=== PATIENT | female | born 1960 | race Caucasian/White ===

== ENCOUNTER 2021-07-01 15:57 | Inpatient (IN) | payer OTHER, SELFPAY ==
[2021-07-01] VITALS (20 sets, daily range): BP systolic 123–137; BP diastolic 70–93; PULSE 93–132; RESP 24–26; TEMP 36.6; O2SAT 90–97; BMI 35.4
[2021-07-01 16:44] LABS: COVID19 -Nasal RAPID Negative (Negative)
[2021-07-01] MEDS: ALBUTEROL/IPRATROPIUM 3 ML AMPUL INH ×2 (17:06→17:20)
--- NOTE | 2021-07-01 17:11 | DI.RAD.S_ITS ---
PROCEDURE: XR CHEST 1V INDICATIONS: Cough TECHNIQUE: One view of the chest was acquired. COMPARISON: None. FINDINGS: Surgical changes and devices: None. Lungs and pleura: Lungs are clear. No pleural effusions or pneumothorax. Mediastinum: Mediastinal contours appear normal. Heart size is normal. Bones and chest wall: No suspicious bony lesions. Overlying soft tissues appear unremarkable. IMPRESSION: No acute cardiopulmonary process demonstrated radiographically. Dictated by: Samir Hernandez M.D. on 07/01/2021 at 17:29 Approved by: Samir Hernandez M.D. on 07/01/2021 at 17:29
[2021-07-01] MEDS: ALBUTEROL 2.5 MG/3 ML NEB (ADULT) 5 MG INH (17:20)
[2021-07-01] MEDS: MAGNESIUM SULFATE 2 GM/50 ML PIGGYBACK IV (17:26)
[2021-07-01] MEDS: methylPREDNISolone 125 MG/2 ML VIAL IV (17:27)
[2021-07-01] MEDS: SODIUM CHLORIDE 0.9% 1,000 ML 1000 ML IV (17:27)
--- NOTE | 2021-07-01 17:54 | RT ---
pt ethel fried tx well, on room air with improvment noted. Post peak flow 240. Pt states she feels much better
[2021-07-01 18:05] LABS: Add Manual Diff / Slide Review NO; Basophils Absolute Auto 100 /uL (0-100); Basophils Percent Auto 0.7 % (0-2); Eosinophils Absolute Auto 900 /uL (0-450); Eosinophils Percent Auto 6.8 % (2-4); Hematocrit 46.4 % (36-46); Hemoglobin 15.6 g/dL (12.0-16.0); Lymphocytes Absolute Auto 2700 /uL (1100-4500); Lymphocytes Percent Auto 21.2 % (25-40); Mean Corpuscular HGB Conc 33.7 % (30-36); Mean Corpuscular Hemoglobin 28.8 PG (26-34); Mean Corpuscular Volume 85.2 fL (80-100); Monocytes Absolute Auto 1200 /uL (0-900); Monocytes Percent Auto 9.5 % (3-14); Neutrophils Absolute Auto 7700 /uL (1500-7000); Neutrophils Percent Auto 61.8 % (50-75); Platelet Count 392 X10^3/uL (150-400); Red Blood Cell Count 5.44 X10^6/uL (4.0-5.2); Red Cell Distribution Width 13.4 % (11.6-14.8); White Blood Cell Count 12.5 X10^3/uL (4.5-11.0)
[2021-07-01 18:19] LABS: Alanine Aminotransferase 27 IU/L (<35); Albumin 4.6 g/dL (3.5-5.0); Albumin Globulin Ratio 1.2 (1.0-2.8); Alkaline Phosphatase 60 U/L (38-126); Aspartate Aminotransferase 28 IU/L (14-36); BUN Creatinine Ratio 13.4 (6-22); Bilirubin Total 0.5 mg/dL (0.2-1.3); Blood Urea Nitrogen 19 mg/dL (7-17); Calcium 10.1 mg/dL (8.4-10.2); Carbon Dioxide 28 mmol/L (22-32); Chloride 105 mmol/L (98-107); Estimated Glomerular Filt Rate 37.6 mL/min (>60); Globulin 3.7 g/dL (1.7-4.1); Glucose 80 mg/dL (80-110); HEMOLYSIS < 15 (0-50); Potassium 3.4 mmol/L (3.4-5.1); Sodium 141 mmol/L (137-145); Total Protein 8.3 g/dL (6.3-8.2)
[2021-07-01 18:23] LABS: D Dimer 524 ng/mL (<230)
[2021-07-01 18:31] LABS: Troponin I < 0.012 ng/mL (0.01-0.034)
--- NOTE | 2021-07-01 18:53 | ED.ASTHMA ---
HPI - Asthma <Jaylyn Jones MD - Last Filed: 07/02/21 07:20> General Chief Complaint: Asthma Stated Complaint: bad asthma attack Time Seen by Provider: 07/01/21 17:09 Source: patient Mode of arrival: Ambulatory History of Present Illness HPI Narrative: 60-year-old woman with severe asthma 3 steroid tapers of the last number of months most recently discontinued about 6 days ago with worsening asthma symptoms over the last 24-48 hours. Recently seen by an telemetry rn and prescription Eren was written and she is waiting for insurance approval. Currently on high-dose Advair Diskus b.i.d., Singulair, albuterol inhaler and nebulizer and continues to have issues. She comes in today significantly short of breath able to speak in 1-2 word sentences oxygen saturations still maintained in the a 98% range but poor air movement and moderate tachycardia. She describes no fevers chills, vomiting, diarrhea, abdominal pain, headaches, lower extremity edema, chest pain or palpitations. Related Data Home Medications Medication Instructions Recorded Confirmed bupropion HCl 150 mg 24 hr tablet, 150 mg PO QDAY #0 07/12/16 07/02/21 extended release (Wellbutrin XL) fluticasone propionate 220 1 puff INH BID #0 07/12/16 07/02/21 mcg/actuation HFA aerosol inhaler (Flovent HFA) levothyroxine 150 mcg tablet 150 mcg PO QAM #0 07/12/16 07/02/21 triamterene 37.5 1 tab PO QDAY #0 07/12/16 07/02/21 mg-hydrochlorothiazide 25 mg tablet citalopram 20 mg tablet 20 mg PO DAILY 07/02/21 07/02/21 montelukast 10 mg tablet 10 mg PO DAILY 07/02/21 07/02/21 Previous Rx's Medication Instructions Recorded albuterol sulfate 1.25 mg/3 mL 1.25 mg (3 mL) INHALATION Q4-6H 07/01/21 solution for nebulization PRN #90 ml ipratropium 0.5 mg-albuterol 3 mg 3 ml INHALATION BID PRN #90 ml 07/01/21 (2.5 mg base)/3 mL nebulization soln prednisone 20 mg tablet 20 mg PO DAILY #14 tab 07/01/21 Allergies Allergy/AdvReac Type Severity Reaction Status Date / Time Sulfa (Sulfonamide Allergy Verified 07/01/21 16:03 Antibiotics) No Known Allergies Allergy Uncoded 10/12/17 12:13 Review of Systems <Jaylyn Jones MD - Last Filed: 07/02/21 07:20> Review of Systems Narrative: Remainder of complete review of systems is otherwise unremarkable except for that included in the HPI. Patient History <Jaylyn Jones MD - Last Filed: 07/02/21 07:20> Medical History Chronic depression Essential hypertension Hypothyroidism Family History Mother Alive and well Father Cancer Social History household members: family Smoking Status: Former smoker alcohol intake: current Smoking Status: Unknown if ever smoked alcohol intake frequency: holidays/special occasions only Substance Use Type: does not use Exam <Jaylyn Jones MD - Last Filed: 07/02/21 07:20> Narrative Exam Narrative: General: Ill-appearing with moderate respiratory distress able to speak in 3-4 word sentences are. Well-nourished well-developed HEENT: Moist mucous membranes, normal sclera with reactive pupils, Neck: No cervical adenopathy supple Respiratory: Lungs with poor overall movement scattered wheeze, no rhonchi Cardiac: Mild tachycardia Regular rate and rhythm no murmurs no bruits Abdomen: Soft, nontender, good bowel tones, no flank pain Skin: Warm and dry, no rashes Neurologic: Grossly neurologically intact with no obvious asymmetries or abnormalities Extremities: No trauma, well perfused, no lower extremity edema Psych: Cooperative, appropriate insight and affect Initial Vital Signs Initial Vital Signs: Vital Signs Temperature 97.8 F 07/01/21 16:03 Pulse Rate 107 H 07/01/21 16:03 Respiratory Rate 24 07/01/21 16:03 Blood Pressure 137/93 H 07/01/21 16:03 Pulse Oximetry 95 07/01/21 16:03 <Lalito Corral DO - Last Filed: 07/02/21 00:09> Initial Vital Signs Initial Vital Signs: Vital Signs Temperature 97.8 F 07/01/21 16:03 Pulse Rate 107 H 07/01/21 16:03 Respiratory Rate 24 07/01/21 16:03 Blood Pressure 137/93 H 07/01/21 16:03 Pulse Oximetry 95 07/01/21 16:03 Course <Jaylyn Jones MD - Last Filed: 07/02/21 07:20> Orders Ordered: Acetaminophen (Acetaminophen 325 Mg Tablet) 650 mg PO Q6HR PRN PRN Reason: Fever/Mild Pain (1-3) Albuterol (Albuterol 2.5 Mg/3 Ml Neb (Adult)) 2.5 mg INH [id number] PRN PRN Reason: Shortness Of Breath Albuterol/Ipratropium (Albuterol/Ipratropium 3 Ml Ampul) 3 ml INH [id number] LANDY Azithromycin (Azithromycin 250 Mg Tablet) 500 mg PO BEDTIME LANDY Budesonide (Budesonide 0.5 Mg/2 Ml Neb) 0.5 mg INH RTBID LANDY Dexamethasone (Dexamethasone 10 Mg/Ml Vial) 5 mg IV DAILY [facility] Stop: 07/06/21 08:59 Enoxaparin Sodium (Enoxaparin 40 Mg/0.4 Ml Syringe) 40 mg SUBCUT DAILY [facility] Ceftriaxone Sodium 1,000 mg/ (Sodium Chloride) 100 mls @ 200 mls/hr IV Q24H [facility] Ibuprofen (Ibuprofen 600 Mg Tablet) 600 mg PO Q6HR PRN PRN Reason: Fever/Mild Pain (1-3) Morphine Sulfate (Morphine 2 Mg/Ml Inj) 1 mg IV Q2HR PRN PRN Reason: Pain, Severe (7-10) Naloxone HCl (Naloxone 0.4 Mg/Ml Vial) 0.2 mg IV Q2MIN PRN PRN Reason: Opiate Reversal Triamterene/Hydrochlorothiazide (Triamterene/Hctz 37.5/25 Capsule) 1 cap PO DAILY [facility] Discontinued Medications Albuterol (Albuterol 2.5 Mg/3 Ml Neb (Adult)) 5 mg INH NOW ONE Stop: 07/01/21 17:11 Last Admin: 07/01/21 17:20 Dose: 5 mg Documented by: VIGNESH Albuterol (Albuterol 2.5 Mg/3 Ml Neb (Adult)) 20 mg INH NOW ONE Stop: 07/02/21 00:22 Last Admin: 07/02/21 00:31 Dose: 20 mg Documented by: KAITY Albuterol/Ipratropium (Albuterol/Ipratropium 3 Ml Ampul) 3 ml INH NOW ONE Stop: 07/01/21 17:04 Last Admin: 07/01/21 17:06 Dose: 3 ml Documented by: VIGNESH Albuterol/Ipratropium (Albuterol/Ipratropium 3 Ml Ampul) 3 ml INH NOW ONE Stop: 07/01/21 17:11 Last Admin: 07/01/21 17:20 Dose: 3 ml Documented by: VIGNESH Sodium Chloride (Normal Saline 0.9%) 1,000 mls @ 1,000 mls/hr IV BOLUS ONE Stop: 07/01/21 18:09 Last Infusion: 07/01/21 19:01 Dose: 0 mls/hr Documented by: Infusion: 07/01/21 18:13 Dose: 1,000 mls/hr Documented by: Infusion: 07/01/21 17:30 Dose: 100 mls/hr Documented by: Admin: 07/01/21 17:27 Dose: 1,000 mls/hr Documented by: THEE Magnesium Sulfate (Magnesium Sulfate) 2 gm in 50 mls @ 25 mls/hr IV NOW ONE Stop: 07/01/21 19:09 Last Infusion: 07/01/21 18:09 Dose: 0 mls/hr Documented by: THEE Cosigned by: ILIANA Admin: 07/01/21 17:26 Dose: 25 mls/hr Documented by: THEE Cosigned by: ILIANA Ceftriaxone Sodium 1,000 mg/ (Sodium Chloride) 100 mls @ 200 mls/hr IV NOW ONE Stop: 07/01/21 22:43 Last Infusion: 07/01/21 23:29 Dose: 0 mls/hr Documented by: Admin: 07/01/21 22:58 Dose: 200 mls/hr Documented by: BALA Azithromycin 500 mg/ Sodium (Chloride) 250 mls @ 250 mls/hr IV NOW ONE Stop: 07/02/21 00:44 Last Admin: 07/01/21 23:47 Dose: 250 mls/hr Documented by: BALA Ipratropium Hustle (Ipratropium 0.5 Mg/2.5 Ml Neb) 1.5 mg INH NOW ONE Stop: 07/02/21 00:22 Last Admin: 07/02/21 00:31 Dose: 1.5 mg Documented by: KAITY Methylprednisolone (Methylprednisolone 125 Mg/2 Ml Vial) 125 mg IV NOW ONE Stop: 07/01/21 17:11 Last Admin: 07/01/21 17:27 Dose: 125 mg Documented by: THEE Morphine Sulfate (Morphine 2 Mg/Ml Inj) 1 mg IV Q2HR LANDY Last Admin: 07/02/21 03:54 Dose: 1 mg Documented by: BECCA Vital Signs Vital signs: Vital Signs - 8 hr 07/01/21 23:30 07/01/21 23:47 07/02/21 00:00 Pulse Rate 96 H 95 H 97 H Blood Pressure 123/70 123/78 Pulse Oximetry 91 91 91 <Lalito Corral DO - Last Filed: 07/02/21 00:09> Course Course Narrative: 1929 -patient received in sign-out, I performed independent history and physical exam. CT angiogram shows no PE but she does have findings that could be consistent with an infectious process, antibiotics have been given. Despite extensive use of bronchodilators, steroids, and even Mg, her she still is working and with any ambulation become significantly dyspneic. She has already been through a course of oral steroids as an outpatient and was starting to improve some but this clinical picture would suggest the patient is appropriate for admission into the hospital for ongoing evaluation stabilization of her condition Orders Ordered: Acetaminophen (Acetaminophen 325 Mg Tablet) 650 mg PO Q6HR PRN PRN Reason: Fever/Mild Pain (1-3) Albuterol (Albuterol 2.5 Mg/3 Ml Neb (Adult)) 2.5 mg INH [id number] PRN PRN Reason: Shortness Of Breath Albuterol/Ipratropium (Albuterol/Ipratropium 3 Ml Ampul) 3 ml INH [id number] LANDY Azithromycin (Azithromycin 250 Mg Tablet) 500 mg PO BEDTIME LANDY Budesonide (Budesonide 0.5 Mg/2 Ml Neb) 0.5 mg INH RTBID LANDY Dexamethasone (Dexamethasone 10 Mg/Ml Vial) 5 mg IV DAILY [facility] Stop: 07/06/21 08:59 Enoxaparin Sodium (Enoxaparin 40 Mg/0.4 Ml Syringe) 40 mg SUBCUT DAILY [facility] Ceftriaxone Sodium 1,000 mg/ (Sodium Chloride) 100 mls @ 200 mls/hr IV Q24H [facility] Ibuprofen (Ibuprofen 600 Mg Tablet) 600 mg PO Q6HR PRN PRN Reason: Fever/Mild Pain (1-3) Morphine Sulfate (Morphine 2 Mg/Ml Inj) 1 mg IV Q2HR PRN PRN Reason: Pain, Severe (7-10) Naloxone HCl (Naloxone 0.4 Mg/Ml Vial) 0.2 mg IV Q2MIN PRN PRN Reason: Opiate Reversal Triamterene/Hydrochlorothiazide (Triamterene/Hctz 37.5/25 Capsule) 1 cap PO DAILY [facility] Discontinued Medications Albuterol (Albuterol 2.5 Mg/3 Ml Neb (Adult)) 5 mg INH NOW ONE Stop: 07/01/21 17:11 Last Admin: 07/01/21 17:20 Dose: 5 mg Documented by: VIGNESH Albuterol (Albuterol 2.5 Mg/3 Ml Neb (Adult)) 20 mg INH NOW ONE Stop: 07/02/21 00:22 Last Admin: 07/02/21 00:31 Dose: 20 mg Documented by: KAITY Albuterol/Ipratropium (Albuterol/Ipratropium 3 Ml Ampul) 3 ml INH NOW ONE Stop: 07/01/21 17:04 Last Admin: 07/01/21 17:06 Dose: 3 ml Documented by: VIGNESH Albuterol/Ipratropium (Albuterol/Ipratropium 3 Ml Ampul) 3 ml INH NOW ONE Stop: 07/01/21 17:11 Last Admin: 07/01/21 17:20 Dose: 3 ml Documented by: VIGNESH Sodium Chloride (Normal Saline 0.9%) 1,000 mls @ 1,000 mls/hr IV BOLUS ONE Stop: 07/01/21 18:09 Last Infusion: 07/01/21 19:01 Dose: 0 mls/hr Documented by: Infusion: 07/01/21 18:13 Dose: 1,000 mls/hr Documented by: Infusion: 07/01/21 17:30 Dose: 100 mls/hr Documented by: Admin: 07/01/21 17:27 Dose: 1,000 mls/hr Documented by: THEE Magnesium Sulfate (Magnesium Sulfate) 2 gm in 50 mls @ 25 mls/hr IV NOW ONE Stop: 07/01/21 19:09 Last Infusion: 07/01/21 18:09 Dose: 0 mls/hr Documented by: THEE Cosigned by: ILIANA Admin: 07/01/21 17:26 Dose: 25 mls/hr Documented by: THEE Cosigned by: ILIANA Ceftriaxone Sodium 1,000 mg/ (Sodium Chloride) 100 mls @ 200 mls/hr IV NOW ONE Stop: 07/01/21 22:43 Last Infusion: 07/01/21 23:29 Dose: 0 mls/hr Documented by: Admin: 07/01/21 22:58 Dose: 200 mls/hr Documented by: BALA Azithromycin 500 mg/ Sodium (Chloride) 250 mls @ 250 mls/hr IV NOW ONE Stop: 07/02/21 00:44 Last Admin: 07/01/21 23:47 Dose: 250 mls/hr Documented by: BALA Ipratropium Hustle (Ipratropium 0.5 Mg/2.5 Ml Neb) 1.5 mg INH NOW ONE Stop: 07/02/21 00:22 Last Admin: 07/02/21 00:31 Dose: 1.5 mg Documented by: KAITY Methylprednisolone (Methylprednisolone 125 Mg/2 Ml Vial) 125 mg IV NOW ONE Stop: 07/01/21 17:11 Last Admin: 07/01/21 17:27 Dose: 125 mg Documented by: THEE Morphine Sulfate (Morphine 2 Mg/Ml Inj) 1 mg IV Q2HR LANDY Last Admin: 07/02/21 03:54 Dose: 1 mg Documented by: BECCA Vital Signs Vital signs: Vital Signs - 8 hr 07/01/21 23:30 07/01/21 23:47 07/02/21 00:00 Pulse Rate 96 H 95 H 97 H Blood Pressure 123/70 123/78 Pulse Oximetry 91 91 91 MDM - Asthma <Jaylyn Jones MD - Last Filed: 07/02/21 07:20> Lab Data Result diagrams: 07/02/21 05:53 07/02/21 05:53 Labs: Lab Results 07/01/21 07/01/21 07/01/21 Range/Units 16:09 17:30 17:30 WBC 12.5 H (4.5-11.0) X10^3/uL RBC 5.44 H (4.0-5.2) X10^6/uL Hgb 15.6 (12.0-16.0) g/dL Hct 46.4 H (36-46) % MCV 85.2 (80-100) fL MCH 28.8 (26-34) PG MCHC 33.7 (30-36) % RDW 13.4 (11.6-14.8) % Plt Count 392 (150-400) X10^3/uL Neut % (Auto) 61.8 (50-75) % Lymph % (Auto) 21.2 L (25-40) % [place] % (Auto) 9.5 (3-14) % Eos % (Auto) 6.8 H (2-4) % Baso % (Auto) 0.7 (0-2) % Neut # (Auto) 7700 H (7301-6008) /uL Lymph # (Auto) 2700 (6497-2674) /uL [place] # (Auto) 1200 H (0-900) /uL Eos # (Auto) 900 H (0-450) /uL Baso # (Auto) 100 (0-100) /uL D-Dimer 524 H (<230) ng/mL ABG pH (7.35-7.45) ABG pCO2 (35-45) mmHg ABG pO2 (80-100) mmHg ABG HCO3 (22-26) mmol/L ABG Total CO2 (21-31) mmol/L ABG O2 Saturation (95-100) % ABG Base Excess (-2-2) mmol/L FiO2 Sodium (137-145) mmol/L Potassium (3.4-5.1) mmol/L Chloride (98-107) mmol/L Carbon Dioxide (22-32) mmol/L BUN (7-17) mg/dL Creatinine (0.52-1.04) mg/dL Estimated GFR (>60) mL/min BUN/Creatinine Ratio (6-22) Glucose (80-110) mg/dL Calcium (8.4-10.2) mg/dL Total Bilirubin (0.2-1.3) mg/dL AST (14-36) IU/L ALT (<35) IU/L Alkaline Phosphatase (38-126) U/L Troponin I (0.01-0.034) ng/mL Total Protein (6.3-8.2) g/dL Albumin (3.5-5.0) g/dL Globulin (1.7-4.1) g/dL Albumin/Globulin Ratio (1.0-2.8) Procalcitonin (<0.5) ng/mL SARS-CoV-2 (PCR) Negative (Negative) 07/01/21 07/01/21 07/02/21 Range/Units 17:30 17:30 00:00 WBC (4.5-11.0) X10^3/uL RBC (4.0-5.2) X10^6/uL Hgb (12.0-16.0) g/dL Hct (36-46) % MCV (80-100) fL MCH (26-34) PG MCHC (30-36) % RDW (11.6-14.8) % Plt Count (150-400) X10^3/uL Neut % (Auto) (50-75) % Lymph % (Auto) (25-40) % [place] % (Auto) (3-14) % Eos % (Auto) (2-4) % Baso % (Auto) (0-2) % Neut # (Auto) (5209-1548) /uL Lymph # (Auto) (6437-6178) /uL [place] # (Auto) (0-900) /uL Eos # (Auto) (0-450) /uL Baso # (Auto) (0-100) /uL D-Dimer (<230) ng/mL ABG pH 7.40 (7.35-7.45) ABG pCO2 30.6 L (35-45) mmHg ABG pO2 66 L (80-100) mmHg ABG HCO3 19 L (22-26) mmol/L ABG Total CO2 20 L (21-31) mmol/L ABG O2 Saturation 93 L (95-100) % ABG Base Excess -6.0 L (-2-2) mmol/L FiO2 21 Sodium 141 (137-145) mmol/L Potassium 3.4 (3.4-5.1) mmol/L Chloride 105 (98-107) mmol/L Carbon Dioxide 28 (22-32) mmol/L BUN 19 H (7-17) mg/dL Creatinine 1.42 H (0.52-1.04) mg/dL Estimated GFR 37.6 L (>60) mL/min BUN/Creatinine Ratio 13.4 (6-22) Glucose 80 (80-110) mg/dL Calcium 10.1 (8.4-10.2) mg/dL Total Bilirubin 0.5 (0.2-1.3) mg/dL AST 28 (14-36) IU/L ALT 27 (<35) IU/L Alkaline Phosphatase 60 (38-126) U/L Troponin I < 0.012 (0.01-0.034) ng/mL Total Protein 8.3 H (6.3-8.2) g/dL Albumin 4.6 (3.5-5.0) g/dL Globulin 3.7 (1.7-4.1) g/dL Albumin/Globulin Ratio 1.2 (1.0-2.8) Procalcitonin 0.08 (<0.5) ng/mL SARS-CoV-2 (PCR) (Negative) Imaging Data Chest x-ray: Radiologist's Impression: FINDINGS:? ? Surgical changes and devices:? None.? ? Lungs and pleura:? Lungs are clear.? No pleural effusions or pneumothorax.? ? Mediastinum:? Mediastinal contours appear normal.? Heart size is normal.? ? Bones and chest wall:? No suspicious bony lesions.? Overlying soft tissues appear unremarkable.? ? IMPRESSION:? No acute cardiopulmonary process demonstrated radiographically. ? ? Dictated by: Samir Hernandez M.D. on 07/01/2021 at 17:29 ? ? CT scan - chest: Radiologist's Impression: FINDINGS:? Image quality:? Excellent.? ? Pulmonary arteries:? Pulmonary arteries are normal in size, and demonstrate no intraluminal filling defects to suggest central pulmonary embolism.? ? Lungs and pleura:? Scattered small centrilobular nodules in both lungs, nonspecific but likely infectious/inflammatory.? No focal consolidation.? No significant pleural abnormality.? Central airways clear. ? Mediastinum:? No mediastinal or hilar lymphadenopathy.? Small hiatal hernia.? Normal heart size.? Thoracic aorta unremarkable. ? Bones and chest wall:? No threshold enlarged axillary lymph node.? No acute or suspicious osseous lesion. ? Abdomen:? No acute finding in the included upper abdomen. ? IMPRESSION:? No pulmonary embolism.? Scattered small bilateral centrilobular pulmonary nodules and ground-glass opacities, likely infectious/inflammatory.? Follow-up to resolution recommended. ? ? Dictated by: Samir Hernandez M.D. on 07/01/2021 at 20:32? ?? MDM Narrative Medical decision making narrative: 60-year-old woman with severe asthma, worse over the last month with multiple courses of prednisone comes in today with severe exacerbation. She does improve significantly with fluids, IV magnesium, ipratropium followed by albuterol nebulizers and IV steroids. D-dimer is elevated so will do a PE study to confirm that she does not have pulmonary embolism to complicate the overall picture explain why she has had such severe asthma symptoms over the last couple of weeks. At this time is not appear to be any evidence of acute infection or pneumonia. Once her lungs have the open up somewhat becomes obvious how severe her wheezing is. At this point she is able to speak in almost full sentences and no longer using any accessory muscles. CTA is pending. Care is turned over to Dr Corral at change of shift. CTA was unremarkable. On further clinical evaluation wheezing did not significantly improve with significant work of breathing tachypnea. Decision was made to add mid the patient for acute asthma exacerbation and continued aggressive treatment. She is given a dose of antibiotics for possible atypical pneumonia and care is accepted by the hospitalist service. She is safely transfer to the floor. <Lalito Corral, - Last Filed: 07/02/21 00:09> Lab Data Labs: Lab Results 07/01/21 07/01/21 07/01/21 Range/Units 16:09 17:30 17:30 WBC 12.5 H (4.5-11.0) X10^3/uL RBC 5.44 H (4.0-5.2) X10^6/uL Hgb 15.6 (12.0-16.0) g/dL Hct 46.4 H (36-46) % MCV 85.2 (80-100) fL MCH 28.8 (26-34) PG MCHC 33.7 (30-36) % RDW 13.4 (11.6-14.8) % Plt Count 392 (150-400) X10^3/uL Neut % (Auto) 61.8 (50-75) % Lymph % (Auto) 21.2 L (25-40) % [place] % (Auto) 9.5 (3-14) % Eos % (Auto) 6.8 H (2-4) % Baso % (Auto) 0.7 (0-2) % Neut # (Auto) 7700 H (9760-8098) /uL Lymph # (Auto) 2700 (1359-0741) /uL [place] # (Auto) 1200 H (0-900) /uL Eos # (Auto) 900 H (0-450) /uL Baso # (Auto) 100 (0-100) /uL D-Dimer 524 H (<230) ng/mL ABG pH (7.35-7.45) ABG pCO2 (35-45) mmHg ABG pO2 (80-100) mmHg ABG HCO3 (22-26) mmol/L ABG Total CO2 (21-31) mmol/L ABG O2 Saturation (95-100) % ABG Base Excess (-2-2) mmol/L FiO2 Sodium (137-145) mmol/L Potassium (3.4-5.1) mmol/L Chloride (98-107) mmol/L Carbon Dioxide (22-32) mmol/L BUN (7-17) mg/dL Creatinine (0.52-1.04) mg/dL Estimated GFR (>60) mL/min BUN/Creatinine Ratio (6-22) Glucose (80-110) mg/dL Calcium (8.4-10.2) mg/dL Total Bilirubin (0.2-1.3) mg/dL AST (14-36) IU/L ALT (<35) IU/L Alkaline Phosphatase (38-126) U/L Troponin I (0.01-0.034) ng/mL Total Protein (6.3-8.2) g/dL Albumin (3.5-5.0) g/dL Globulin (1.7-4.1) g/dL Albumin/Globulin Ratio (1.0-2.8) Procalcitonin (<0.5) ng/mL SARS-CoV-2 (PCR) Negative (Negative) 07/01/21 07/01/2121 Range/Units 17:30 17:30 00:00 WBC (4.5-11.0) X10^3/uL RBC (4.0-5.2) X10^6/uL Hgb (12.0-16.0) g/dL Hct (36-46) % MCV (80-100) fL MCH (26-34) PG MCHC (30-36) % RDW (11.6-14.8) % Plt Count (150-400) X10^3/uL Neut % (Auto) (50-75) % Lymph % (Auto) (25-40) % [place] % (Auto) (3-14) % Eos % (Auto) (2-4) % Baso % (Auto) (0-2) % Neut # (Auto) (2367-3342) /uL Lymph # (Auto) (0426-7428) /uL [place] # (Auto) (0-900) /uL Eos # (Auto) (0-450) /uL Baso # (Auto) (0-100) /uL D-Dimer (<230) ng/mL ABG pH 7.40 (7.35-7.45) ABG pCO2 30.6 L (35-45) mmHg ABG pO2 66 L (80-100) mmHg ABG HCO3 19 L (22-26) mmol/L ABG Total CO2 20 L (21-31) mmol/L ABG O2 Saturation 93 L (95-100) % ABG Base Excess -6.0 L (-2-2) mmol/L FiO2 21 Sodium 141 (137-145) mmol/L Potassium 3.4 (3.4-5.1) mmol/L Chloride 105 (98-107) mmol/L Carbon Dioxide 28 (22-32) mmol/L BUN 19 H (7-17) mg/dL Creatinine 1.42 H (0.52-1.04) mg/dL Estimated GFR 37.6 L (>60) mL/min BUN/Creatinine Ratio 13.4 (6-22) Glucose 80 (80-110) mg/dL Calcium 10.1 (8.4-10.2) mg/dL Total Bilirubin 0.5 (0.2-1.3) mg/dL AST 28 (14-36) IU/L ALT 27 (<35) IU/L Alkaline Phosphatase 60 (38-126) U/L Troponin I < 0.012 (0.01-0.034) ng/mL Total Protein 8.3 H (6.3-8.2) g/dL Albumin 4.6 (3.5-5.0) g/dL Globulin 3.7 (1.7-4.1) g/dL Albumin/Globulin Ratio 1.2 (1.0-2.8) Procalcitonin 0.08 (<0.5) ng/mL SARS-CoV-2 (PCR) (Negative) Discharge Plan Departure Patient Disposition: Admitted as Observation Clinical Impression: Asthma with acute exacerbation, Atypical pneumonia Admit Date/Time: 07/02/21 00:08 Admit Provider: Yas Byrnes
--- NOTE | 2021-07-01 19:53 | PC.NURSE ---
Patient got up to restroom, with short walk to restroom patient began coughing extensively having a hard time catching her breath. Room air sat 93, heart rate 104. After a few minutes of rest coughing slowed and patient was able to catch her breath.
--- NOTE | 2021-07-01 20:04 | DI.CT.S_ITS ---
PROCEDURE: CT ANGIO CHEST PE PROTOCOL INDICATIONS: SOB, elevated Dimer TECHNIQUE: After the administration of intravenous contrast, 2 mm thick sections acquired from the pulmonary apices to the posterior costophrenic angles. 3-dimensional maximum intensity projection (MIP) coronal and sagittal reformats were then acquired through the thorax. For radiation dose reduction, the following was used: automated exposure control, adjustment of mA and/or kV according to patient size. COMPARISON: None. FINDINGS: Image quality: Excellent. Pulmonary arteries: Pulmonary arteries are normal in size, and demonstrate no intraluminal filling defects to suggest central pulmonary embolism. Lungs and pleura: Scattered small centrilobular nodules in both lungs, nonspecific but likely infectious/inflammatory. No focal consolidation. No significant pleural abnormality. Central airways clear. Mediastinum: No mediastinal or hilar lymphadenopathy. Small hiatal hernia. Normal heart size. Thoracic aorta unremarkable. Bones and chest wall: No threshold enlarged axillary lymph node. No acute or suspicious osseous lesion. Abdomen: No acute finding in the included upper abdomen. IMPRESSION: No pulmonary embolism. Scattered small bilateral centrilobular pulmonary nodules and ground-glass opacities, likely infectious/inflammatory. Follow-up to resolution recommended. Dictated by: Samir Hernandez M.D. on 07/01/2021 at 20:32 Approved by: Samir Hernandez M.D. on 07/01/2021 at 20:37
[2021-07-01] MEDS: cefTRIAXone 1,000 MG in SODIUM CHLORIDE 0.9% 100 ML 200 ML IV (22:58)
[2021-07-01] MEDS: AZITHROMYCIN 500 MG in SODIUM CHLORIDE 0.9% 250 ML IV (23:47)
[2021-07-02] VITALS (16 sets, daily range): BP systolic 114–143; BP diastolic 64–82; PULSE 84–128; RESP 17–26; TEMP 36.3–37.6; O2SAT 91–97; BMI 35.5
[2021-07-02] MEDS: ALBUTEROL 2.5 MG/3 ML NEB (ADULT) 20 MG INH (00:31)
[2021-07-02] MEDS: IPRATROPIUM 0.5 MG/2.5 ML NEB 1.5 MG INH (00:31)
--- NOTE | 2021-07-02 00:39 | P.HP_ITS ---
History of Present Illness History of Present Illness Date Patient Seen: 07/02/21 Time Patient Seen: 00:10 Chief complaint: Asthma exacerbation, atypical pneumonia Narrative: Annabella Chavis is 60-year-old woman with eosinophilic phenotype severe asthma who underwent 3 steroid tapers of the last number of months most recently discontinued about 6 days ago with worsening asthma symptoms over the last 24-48 hours.? She was recently seen by an aerospace medicine physician at [facility] in [place] and and prescribed injectable Fasenra.? She received in in the mail and needed to have a provider administer her the first dose and has an appointment on July 06 for thisl She is currently using on high-dose Advair Diskus b.i.d 9500/50), monteleukast, albuterol inhaler and nebulizer and continues to short of breath.? She comes in today significantly short of breath, only able to speak in 1-2 word sentences oxygen saturations still maintained in the a 98% range but poor air movement and moderate tachycardia.? She describes no fevers chills, vomiting, diarrhea, abdominal pain, headaches, lower extremity edema, chest pain or palpitations. She does endorse a mildly productive cough with phlegm ranging from clear to greenish in color. In the ED, due to her hypoxia and an elevated D-dimer, she underwent CT angio of the chest and ruled out for a PE concluding: No pulmonary embolism.? Scattered small bilateral centrilobular pulmonary nodules and ground-glass opacities, likely infectious/inflammatory.? Follow-up to resolution recommended. She was adminstered a one-time dose of IV solumedrol 125 mg and multiple nebulizers. She was also administered first doses of IV ceftriaxone and azithromycin. Her temp is 97.8?, blood pressure 120/78, heart rate 101, respiratory rate 26, oxygen saturation 96% (I observed closer to 90-91% on room air while in the room), she weighs 90.7 kg with a BMI of 35.4. She does have a mildly elevated white count at 12.5, she has a mild left shift of 7700, D-dimer was 524, however she is just under the age adjusted normal, she does have a creatinine bump of 1.42 with a EGFR of 37.6, procalcitonin was ordered and is pending and COVID-19 PCR is negative. Patient History Medical History Chronic depression Essential hypertension Hypothyroidism Family & Social History Family History Mother Alive and well Father Cancer Safety & Behavioral: Feels Safe in Current Yes Environment Been Physically Hurt or No Threatened By a Person Tobacco & Substance use: Smoking Status Unknown if ever smoked alcohol intake frequency holiday/special occasion Substance Use Type does not use Meds Home Medications and Allergies Home Medications Medication Instructions Recorded Confirmed Type azithromycin 250 mg tablet 250 mg PO SEE INSTRUCTIONS #6 tab 07/12/16 Rx (Zithromax) beclomethasone dipropionate 80 1 puff INH BID #0 07/12/16 History mcg/actuation aerosol inhaler (Qvar) benzonatate 100 mg capsule 100 mg PO BIDP PRN #30 cap 07/12/16 Rx (Tessalon Perles) bupropion HCl 150 mg 24 hr tablet, 150 mg PO QDAY #0 07/12/16 History extended release (Wellbutrin XL) fluticasone propionate 220 1 puff INH BID #0 07/12/16 History mcg/actuation HFA aerosol inhaler (Flovent HFA) levothyroxine 150 mcg tablet 150 mcg PO QAM #0 07/12/16 History prednisone 20 mg tablet 20 mg PO SEE INSTRUCTIONS #10 tab 07/12/16 Rx sertraline 100 mg tablet 100 mg PO QDAY #0 07/12/16 History triamterene 37.5 1 tab PO QDAY #0 07/12/16 History mg-hydrochlorothiazide 25 mg tablet albuterol sulfate 1.25 mg/3 mL 1.25 mg (3 mL) INHALATION Q4-6H 07/01/21 Rx solution for nebulization PRN #90 ml ipratropium 0.5 mg-albuterol 3 mg 3 ml INHALATION BID PRN #90 ml 07/01/21 Rx (2.5 mg base)/3 mL nebulization soln prednisone 20 mg tablet 20 mg PO DAILY #14 tab 07/01/21 Rx Allergies Allergy/AdvReac Type Severity Reaction Status Date / Time Sulfa (Sulfonamide Allergy Verified 07/01/21 16:03 Antibiotics) No Known Allergies Allergy Uncoded 04/11/18 12:13 Review of Systems Review of Systems ROS: Yes All systems reviewed with the patient and are negative except as otherwise documented Exam Vital Signs (past 8 hours): - 07/01/21 17:00 07/01/21 17:06 07/01/21 17:10 Pulse Rate 132 H 114 H 110 H Respiratory Rate 24 24 Blood Pressure Pulse Oximetry 93 94 96 07/01/21 17:30 07/01/21 17:47 07/01/21 18:00 Pulse Rate 111 H 104 H Respiratory Rate Blood Pressure Pulse Oximetry 97 92 92 07/01/21 18:30 07/01/21 19:00 07/01/21 19:30 Pulse Rate 96 H 93 H 97 H Respiratory Rate Blood Pressure Pulse Oximetry 92 94 93 07/01/21 20:00 07/01/21 20:30 07/01/21 21:00 Pulse Rate 97 H 98 H 98 H Respiratory Rate Blood Pressure Pulse Oximetry 92 93 91 07/01/21 21:21 07/01/21 21:30 07/01/21 22:00 Pulse Rate 111 H 102 H 100 H Respiratory Rate 26 H Blood Pressure Pulse Oximetry 94 91 90 L 07/01/21 22:30 07/01/21 23:00 07/01/21 23:30 Pulse Rate 100 H 101 H 96 H Respiratory Rate Blood Pressure Pulse Oximetry 91 07/01/21 23:47 07/02/21 00:00 07/02/21 00:30 Pulse Rate 95 H 97 H 101 H Respiratory Rate Blood Pressure 123/70 123/78 120/78 Pulse Oximetry 91 91 96 Oxygen Delivery Method Room Air Narrative Exam Narrative: Gen: Alert, oriented, well-developed 60 y.o. female, labored breathing HEENT: normocephalic, atraumatic, conjunctiva clear, sclera non-icteric, oral mucosa pink and moist Neck: supple, full ROM, no JVD, trachea is midline Resp: Lungs tight w/an O2 sat of 91%, continuous coughing CV: RRR, no murmur or rubs Abd: soft, non-tender, normoactive BTs Skin: no lesions or rashes, dry and intact Neuro: Alert and oriented X 4 w/no focal deficits. Speech clear and coherent. Extremities: moves all 4 extremities, is ambulatory, negative Anali?s sign Psyche: normal mood and affect. Objective Labs Result Diagrams: 07/01/21 17:30 07/01/21 17:30 Labs: Laboratory Results - last 24 hr 07/01/21 07/01/21 07/01/21 16:09 17:30 17:30 WBC 12.5 H RBC 5.44 H Hgb 15.6 Hct 46.4 H MCV 85.2 MCH 28.8 MCHC 33.7 RDW 13.4 Plt Count 392 Neut % (Auto) 61.8 Lymph % (Auto) 21.[address] [place] % (Auto) 9.5 Eos % (Auto) 6.8 H Baso % (Auto) 0.7 Neut # (Auto) 7700 H Lymph # (Auto) 2700 [place] # (Auto) 1200 H Eos # (Auto) 900 H Baso # (Auto) 100 D-Dimer 524 H Sodium Potassium Chloride Carbon Dioxide BUN Creatinine Estimated GFR BUN/Creatinine Ratio Glucose Calcium Total Bilirubin AST ALT Alkaline Phosphatase Troponin I Total Protein Albumin Globulin Albumin/Globulin Ratio SARS-CoV-2 (PCR) Negative 07/01/21 17:30 WBC RBC Hgb Hct MCV MCH MCHC RDW Plt Count Neut % (Auto) Lymph % (Auto) [place] % (Auto) Eos % (Auto) Baso % (Auto) Neut # (Auto) Lymph # (Auto) [place] # (Auto) Eos # (Auto) Baso # (Auto) D-Dimer Sodium 141 Potassium 3.4 Chloride 105 Carbon Dioxide 28 BUN 19 H Creatinine 1.42 H Estimated GFR 37.6 L BUN/Creatinine Ratio 13.4 Glucose 80 Calcium 10.1 Total Bilirubin 0.5 AST 28 ALT 27 Alkaline Phosphatase 60 Troponin I < 0.012 Total Protein 8.3 H Albumin 4.6 Globulin 3.7 Albumin/Globulin Ratio 1.2 SARS-CoV-2 (PCR) Assessment & Plan Assessment & Plan narrative: Annabella Chaivs is admitted for managment and treatment of an asthma exacerbation with an atypical pneumonia. 1. Acute respiratory failure secondary to an asthma exacerbation, present on admission * Patient has eosinophillic phenotype * She has received albuterol/ipatroprium nebulizers and currently is receiving a continuous nebulizer prior to arrival to the medical floor * Start pulmicort nebs bid * Dexamethasone 5 mg IV daily X 4 days, then oral tapor * Continue home dose of monteleukast 10 mg po at bedtime * Son plans to bring her Fosendra injectable, and patient may receive first dose here. 2. Atypical pneumonia, acute and present on admission * Procalcitonin is negative * Continue IV Ceftriaxone and oral azithromax * If no improvement over several days retest for COVID-19 3. Essential hypertension, chronic * Continue home dose of triamterine/HCTZ 37.5/25 4. Hypothyroidism, chronic * Continue home dose of levothyroxine 150 mcg daily 5. Depression, chronic * Continue home dose of bupropion 150 mg po daily VTE Prophylaxis: Wells risk score 1.5 Enoxaparin 40 mg subQ once daily Bilateral SCDs Patient is admitted to the inpatient service due to the severity of disease, risks of further disease progression and this stay is expected to exceed 2 mid nights. FEN: IV fluids: saline lock, diet: heart healthy, labs: CBC, C/BMP, liver enzymes, Mag, PT/INR Consultants None Dispo: probable discharge to home Code status: Full Code as discussed with the patient who identifies her son, Hermelindo as her surrogate and POA. [X] I have utilized all available immediate resources to obtain, update, or review of the patient's current medications COVID-19 COVID-19 status: Negative Result date/Date tested (Pos, Neg/Pending): 07/02/21 Time Spent With Patient Critical Care time: I spent a total of [] minutes of critical care time on this patient's care today; this time is exclusive of procedural time. Scores Wells' Criteria for PE Clinical signs and symptoms of DVT: No PE is #1 Dx or equally likely: No Heart rate > 100: Yes Immobilization at least 3 days or surg in previous 4 weeks: No History of PE or DVT: No Hemoptysis: No Malignancy w/Treatment within 6 months or palliative: No Wells' PE Score total: 1.5 Quality VTE Deep Vein Thrombosis/Pulmonary Embolism Present on Admission: No MIPS - Admit I confirm the patient?s Advance Care Plan is present, Code status is documented, Surrogate decision maker is in patient?s record [If Yes, STOP here]: Yes MIPS - DC The patient has current or prior documentation of left ventricular ejection fraction (LVEF) less than 40%, or moderate or severely depressed left ventricular systolic function.: No
[2021-07-02 01:11] LABS: Procalcitonin 0.08 ng/mL (<0.5)
[2021-07-02 01:27] LABS: HCO3 ABG 19 mmol/L (22-26); Oxygen Saturation ABG 93 % (95-100); PCO2 ABG 30.6 mmHg (35-45); PO2 ABG 66 mmHg (80-100); TCO2 ABG 20 mmol/L (21-31)
[2021-07-02 01:28] LABS: Fractionated Inspired Oxygen 21
--- NOTE | 2021-07-02 03:32 | PC.NURSE ---
Patient arrived at 0227 via stretcher from ED. Patient is A/Ox4 on RA and was coughing when up to the bathroom. Patient was started on Neb treatment at time of arrival and admission was completed. Patients home medications were placed into the nurse catering server at patients request. Pt oriented to room, call light, and fall precautions. Call light and belongings within reach and bed in the lowest and locked position. Son in room with patient at this time.
[2021-07-02] MEDS: MORPHINE 2 MG/ML INJ 1 MG IV ×2 (03:54→20:36)
[2021-07-02 06:31] LABS: Add Manual Diff / Slide Review NO; Basophils Absolute Auto 0 /uL (0-100); Basophils Percent Auto 0.1 % (0-2); Eosinophils Absolute Auto 0 /uL (0-450); Hemoglobin 14.2 g/dL (12.0-16.0); Lymphocytes Absolute Auto 400 /uL (1100-4500); Lymphocytes Percent Auto 4.9 % (25-40); Mean Corpuscular HGB Conc 33.7 % (30-36); Monocytes Absolute Auto 100 /uL (0-900); Monocytes Percent Auto 0.6 % (3-14); Neutrophils Absolute Auto 8000 /uL (1500-7000); Neutrophils Percent Auto 94.4 % (50-75); Platelet Count 366 X10^3/uL (150-400); Red Blood Cell Count 4.88 X10^6/uL (4.0-5.2); Red Cell Distribution Width 13.2 % (11.6-14.8); White Blood Cell Count 8.5 X10^3/uL (4.5-11.0)
[2021-07-02 06:38] LABS: Blood Urea Nitrogen 17 mg/dL (7-17); Calcium 9.3 mg/dL (8.4-10.2); Carbon Dioxide 19 mmol/L (22-32); Chloride 105 mmol/L (98-107); Estimated Glomerular Filt Rate 45.2 mL/min (>60); Glucose 173 mg/dL (80-110); HEMOLYSIS < 15 (0-50); Magnesium 2.3 mg/dL (1.6-2.3); Potassium 3.4 mmol/L (3.4-5.1); Sodium 138 mmol/L (137-145)
[2021-07-02 06:56] LABS: Albumin 4.4 g/dL (3.5-5.0); Albumin Globulin Ratio 1.4 (1.0-2.8); Alkaline Phosphatase 56 U/L (38-126); Aspartate Aminotransferase 34 IU/L (14-36); Bilirubin Total 0.4 mg/dL (0.2-1.3); Bilirubin Unconjugated 0.4 mg/dL (0.0-1.1); Globulin 3.1 g/dL (1.7-4.1); HEMOLYSIS < 15 (0-50); Total Protein 7.5 g/dL (6.3-8.2)
[2021-07-02 07:04] LABS: Alanine Aminotransferase 31 IU/L (<35)
[2021-07-02] MEDS: DEXAMETHASONE 10 MG/ML VIAL 5 MG IV (09:01)
[2021-07-02] MEDS: TRIAMTERENE/HCTZ 37.5/25 CAPSULE 1 CAP PO (09:01)
[2021-07-02] MEDS: ENOXAPARIN 40 MG/0.4 ML SYRINGE SUBCUT (09:02)
[2021-07-02] MEDS: ALBUTEROL/IPRATROPIUM 3 ML AMPUL INH ×3 (09:19→21:01)
[2021-07-02] MEDS: BUDESONIDE 0.5 MG/2 ML NEB INH ×2 (09:20→21:01)
[2021-07-02] MEDS: POTASSIUM CHLORIDE 20 MEQ TAB PO (10:38)
[2021-07-02] MEDS: BENZOCAINE/MENTHOL 1 LOZ PKT 1 EACH PO ×3 (10:38→20:36)
--- NOTE | 2021-07-02 11:02 | PC.NURSE ---
Addendum entered by Marina Rodriguez R.N. 07/02/21 18:15: Patient given ibuprofen,guaifenesin, and iv steroid all of which she tolerated well. States that she has some back pain with her coughing. Addendum entered by Marina Rodriguez R.N. 07/02/21 17:26: Patient up independently to the bathroom and was sitting on the couch in her room. Explained to patient that we would like to have her call if she needs to get up. O2 sats have been 89-93. She is on 2l of oxygen and does have an intermittant cough. Throat lozenges are helpful to patient and she will be getting some iv steroid soon. Addendum entered by Marina Rodriguez R.N. 07/02/21 14:16: Patient is resting on her r.side and is comfortable. She is not in pain or having issues coughing. Patient on 2l of oxygen at this time. 02 89-94%. Addendum entered by Marina Rodriguez R.N. 07/02/21 12:59: Respiratory Panel done and results back. Patient is resting and comfortable. Original Note: Assess- Patient is alert and oriented x3. She gets easily sob when up to the bathroom, with talking, and laughing. Decadron 5mg given to patient this morning, she will start methylprednisolone tonight. Breath sounds upon auscultation with inspiratory and expiratory wheezes, with stridor at the end of her cough. Her O2 sats are 93%. Given a throat lonzenge for comfort and helpful.
[2021-07-02 12:20] LABS: Adenovirus Not Detected (Not Detect); B. parapertussis Not Detected (Not Detecte); Bordetella pertussis Not Detected (Not Detecte); Chlamydophila pneumoniae Not Detected (Not Detect); Coronavirus 229E Not Detected (Not Detect); Coronavirus HKU1 Not Detected (Not Detect); Coronavirus NL 63 Not Detected (Not Detect); Coronavirus OC43 Not Detected (Not Detect); Human Metapneumovirus Not Detected (Not Detect); Human Rhinovirus/Enterovirus Not Detected (Not Detect); Influenza A Not Detected (Not Detect); Influenza B Not Detected (Not Detect); Mycoplasma pneumoniae Not Detected (Not Detect); Parainfluenza Virus 1 Not Detected (Not Detect); Parainfluenza Virus 2 Not Detected (Not Detect); Parainfluenza Virus 3 Not Detected (Not Detect); Parainfluenza Virus 4 Not Detected (Not Detect); Respiratory Syncytial Virus Not Detected (Not Detect); SARS- CoV-2 Not Detected (Not Detecte)
--- NOTE | 2021-07-02 12:33 | CM.DANOTE ---
DCP: Case received, EMR reviewed and met with patient. Introduced self and role. Son, was also at bedside. Was able to obtain information regarding patient's baseline activity status prior to hospitalization. DCP assessment completed with information currently available. Patient is a 60 year old female who admitted early this morning to the care of the hospitalist team. PCP: Dr. Harris at [facility]. Payer: confirmed: [facility]. Patient came to the hospital via private vehicle secondary to having severe asthma attack. Patient has noted increased shortness of breath. She holds current diagnosis of acute asthma and atypical pneumonia. According to notes, patient is also under the care of an typesetter apprentice [facility] [place]. Met with patient in her room. She is alert and oriented, she had oxygen in place. Son was at bedside. Confirmed that she resides with family here in [place]. She is employed at [employer] in [facility] [employer] [facility] [employer] [facility] [employer]. At her baseline, she is independent. P: DCP to continue to follow. Patient should be able to go home when she is deemed medically stable. Julia Del Castillo RN/Online Program Coordinator Discharge Planning/Care Management CM Discharge Assessment Start: 07/02/21 12:28 Freq: Status: Active Protocol: Document 07/02/21 12:28 (Rec: 07/02/21 12:33 [id number]) Discharge Planning Assessment Assigned Clocksmith Julia Del Castillo RN/Online Program Coordinator Advance Directives? No History Provided By Patient,Medical Record Prior Living Arrangements House Household Members family Type of transporation used prior to Drives own vehicle admit Independent with ADL's Yes Is patient alert and oriented? Yes Caregiver for Another No Barriers to Discharge No Discharge Plan Home Transportation Arrangement Family Referrals Initiated None needed Whiteboard Updated in Patient Room with Yes name and ext. # of Clocksmith Review Status In Process Next Review Type Continued Stay Review
[2021-07-02] MEDS: guaiFENesin ER 600 MG TAB PO (17:45)
[2021-07-02] MEDS: IBUPROFEN 600 MG TABLET PO (17:48)
[2021-07-02] MEDS: methylPREDNISolone 125 MG/2 ML VIAL 60 MG IV (17:49)
[2021-07-02] MEDS: AZITHROMYCIN 250 MG TABLET 500 MG PO (20:36)
[2021-07-02] MEDS: cefTRIAXone 1,000 MG in SODIUM CHLORIDE 0.9% 100 ML 200 ML IV (20:37)
[2021-07-03] VITALS (11 sets, daily range): BP systolic 122–146; BP diastolic 53–92; PULSE 85–101; RESP 16–24; TEMP 36.8–37.6; O2SAT 94–98
[2021-07-03] MEDS: methylPREDNISolone 125 MG/2 ML VIAL 60 MG IV ×3 (01:19→17:12)
[2021-07-03] MEDS: LEVOTHYROXINE 150 MCG TABLET PO (06:08)
[2021-07-03] MEDS: guaiFENesin ER 600 MG TAB PO ×2 (06:08→17:15)
[2021-07-03] MEDS: IBUPROFEN 600 MG TABLET PO (06:09)
[2021-07-03 06:39] LABS: Add Manual Diff / Slide Review NO; Basophils Absolute Auto 0 /uL (0-100); Basophils Percent Auto 0.1 % (0-2); Eosinophils Absolute Auto 0 /uL (0-450); Hematocrit 41.7 % (36-46); Hemoglobin 13.8 g/dL (12.0-16.0); Lymphocytes Absolute Auto 700 /uL (1100-4500); Mean Corpuscular HGB Conc 33.2 % (30-36); Mean Corpuscular Hemoglobin 28.8 PG (26-34); Mean Corpuscular Volume 86.7 fL (80-100); Monocytes Absolute Auto 200 /uL (0-900); Monocytes Percent Auto 1.3 % (3-14); Neutrophils Absolute Auto 13600 /uL (1500-7000); Neutrophils Percent Auto 93.6 % (50-75); Platelet Count 352 X10^3/uL (150-400); Red Cell Distribution Width 13.4 % (11.6-14.8); White Blood Cell Count 14.6 X10^3/uL (4.5-11.0)
[2021-07-03 06:48] LABS: Blood Urea Nitrogen 26 mg/dL (7-17); Calcium 9.3 mg/dL (8.4-10.2); Carbon Dioxide 24 mmol/L (22-32); Chloride 108 mmol/L (98-107); Glucose 143 mg/dL (80-110); HEMOLYSIS < 15 (0-50); Magnesium 2.5 mg/dL (1.6-2.3); Sodium 139 mmol/L (137-145)
--- NOTE | 2021-07-03 07:52 | PC.NURSE ---
Addendum entered by Marina Rodriguez R.N. 07/03/21 14:32: Patient complaining of indigestion, given some milk to help with this . Son in room and also attentive to patients needs. Addendum entered by Marina Rodriguez R.N. 07/03/21 14:04: Patient is doing well. She had a breathing treatment and her lungs sound better. She is up with one person assist to bathroom and on 1L of o2. Original Note: Patients lungs sound better, she still has ins/exp wheezes. She has been decreased to 1L of oxygen and is satting at 95%. Patient is a sba whe getting up to bathroom. She has a cough, will give patient guaifenesin and throat lozenge to help this. Patient also has Morphine if needed. She is eating breakfast now.
[2021-07-03] MEDS: ENOXAPARIN 40 MG/0.4 ML SYRINGE SUBCUT (08:03)
[2021-07-03] MEDS: BENZOCAINE/MENTHOL 1 LOZ PKT 1 EACH PO (08:04)
[2021-07-03] MEDS: ALBUTEROL/IPRATROPIUM 3 ML AMPUL INH ×3 (09:21→19:42)
[2021-07-03] MEDS: BUDESONIDE 0.5 MG/2 ML NEB INH ×2 (09:22→19:50)
[2021-07-03] MEDS: buPROPion XL 150 MG TAB PO (10:40)
[2021-07-03] MEDS: CITALOPRAM 10 MG TABLET 20 MG PO (10:40)
[2021-07-03] MEDS: MONTELUKAST 10 MG TABLET PO (10:41)
--- NOTE | 2021-07-03 12:40 | P.PN_ITS ---
Subjective Subjective Date Patient Seen: 07/03/21 Time Patient Seen: 08:00 Interval history: Today she feels more short of breath. She is starting to have more productive sputum. Her coughing fits are less pronounced Exam Vital Signs (past 8 hours): - 07/03/21 06:24 07/03/21 09:22 07/03/21 09:30 Temperature 98.4 F Pulse Rate 91 H 86 95 H Respiratory Rate 21 22 24 Blood Pressure 146/81 H Pulse Oximetry 98 94 95 07/03/21 09:58 Temperature 98.8 F Pulse Rate 85 Respiratory Rate 17 Blood Pressure 122/53 L Pulse Oximetry 94 Oxygen Delivery Method Nasal Cannula Oxygen Flow Rate 0 Narrative Exam Narrative: Gen: labored breathing Neck: trachea midline, no jvd Resp: lungs less wheezy and rhonchorous today, air movement still poor but improving CV: tachycardia Abd: soft, non-tender, normal bowel sounds Objective Labs Result Diagrams: 07/03/21 05:49 07/03/21 05:49 Labs: Laboratory Results - last 24 hr 07/03/21 07/03/21 05:49 05:49 WBC 14.6 H D RBC 4.80 Hgb 13.8 Hct 41.7 MCV 86.7 MCH 28.8 MCHC 33.2 RDW 13.4 Plt Count 352 Neut % (Auto) 93.6 H Lymph % (Auto) 5.0 L [place] % (Auto) 1.3 L Eos % (Auto) 0.0 L Baso % (Auto) 0.1 Neut # (Auto) 37386 H Lymph # (Auto) 700 L [place] # (Auto) 200 Eos # (Auto) 0 Baso # (Auto) 0 Sodium 139 Potassium 4.0 Chloride 108 H Carbon Dioxide 24 BUN 26 H Creatinine 1.24 H Estimated GFR 44.0 L BUN/Creatinine Ratio 21.0 Glucose 143 H Calcium 9.3 Magnesium 2.5 H PFSH Medical History Chronic depression Essential hypertension Hypothyroidism Family History Mother Alive and well Father Cancer Social History household members: family Smoking Status: Former smoker alcohol intake: current Assessment & Plan Assessment & Plan narrative: Annabella Chavis is admitted for managment and treatment of an asthma exacerbation 1. Acute hypoxemic respiratory failure from asthma exacerbation and possible pneumonia -she continues on nebulizers, steroids, pulmicort, montelukast -she did receive magnesium on admission -she has been prescribed fosendra, has not started injections -respiratory panel negative -sputum culture sent -will need outpatient pulm -cxray showed infiltrates of unclear etiology, if does not improve may need bronch -continue IV antibiotics -COVID negative 3. Essential hypertension, chronic -continue anti-hypertensives 4. Hypothyroidism, chronic -continue synthroid 5. Depression, chronic -continue bupropion Time Spent With Patient Critical Care time: I spent a total of [] minutes of critical care time on this patient's care t valentine; this time is exclusive of procedural time. Quality VTE Deep Vein Thrombosis/Pulmonary Embolism Present on Admission: No
[2021-07-03] MEDS: AZITHROMYCIN 250 MG TABLET 500 MG PO (21:12)
[2021-07-03] MEDS: cefTRIAXone 1,000 MG in SODIUM CHLORIDE 0.9% 100 ML 200 ML IV (21:12)
[2021-07-03] MEDS: MORPHINE 2 MG/ML INJ 1 MG IV (21:21)
[2021-07-04] VITALS (15 sets, daily range): BP systolic 118–141; BP diastolic 74–86; PULSE 78–113; RESP 18–28; TEMP 36.6–37.4; O2SAT 93–98
[2021-07-04] MEDS: methylPREDNISolone 125 MG/2 ML VIAL 60 MG IV ×3 (01:07→17:36)
[2021-07-04] MEDS: ALBUTEROL 2.5 MG/3 ML NEB (ADULT) INH ×5 (04:15→13:11)
[2021-07-04] MEDS: MORPHINE 2 MG/ML INJ 1 MG IV (05:30)
[2021-07-04] MEDS: guaiFENesin ER 600 MG TAB PO ×2 (05:31→17:49)
[2021-07-04] MEDS: LEVOTHYROXINE 150 MCG TABLET PO (05:47)
[2021-07-04 05:51] LABS: Hematocrit 41.1 % (36-46); Mean Corpuscular HGB Conc 34.1 % (30-36); Mean Corpuscular Hemoglobin 28.9 PG (26-34); Mean Corpuscular Volume 84.7 fL (80-100); Platelet Count 347 X10^3/uL (150-400); Red Blood Cell Count 4.86 X10^6/uL (4.0-5.2); Red Cell Distribution Width 13.5 % (11.6-14.8); White Blood Cell Count 13.7 X10^3/uL (4.5-11.0)
[2021-07-04 05:58] LABS: BUN Creatinine Ratio 28.3 (6-22); Blood Urea Nitrogen 28 mg/dL (7-17); Calcium 9.3 mg/dL (8.4-10.2); Carbon Dioxide 22 mmol/L (22-32); Chloride 107 mmol/L (98-107); Glucose 150 mg/dL (80-110); HEMOLYSIS 27 (0-50); Potassium 3.5 mmol/L (3.4-5.1); Sodium 136 mmol/L (137-145)
[2021-07-04] MEDS: ALBUTEROL/IPRATROPIUM 3 ML AMPUL INH ×5 (06:28→23:44)
--- NOTE | 2021-07-04 06:36 | PM.CALLCOV.1 ---
Call Coverage Note Note Date of Patient Contact: 07/04/21 Time of Patient Contact: 04:30 Narrative of Care Provided: Patient was having a significant coughing episode heard from outside her room. I checked in on her and she stated should could not breath and was sitting tripod and coughing a lot. Requested RT and she said I will be up there in a few minutes and I told the nurse she needed to get to her room now. Had her nurse administer her 4L O2, then requested a [employer] override for albuterol. RT did show up and was able to start a neb treatment for her.
[2021-07-04] MEDS: ENOXAPARIN 40 MG/0.4 ML SYRINGE SUBCUT (09:08)
[2021-07-04] MEDS: CITALOPRAM 10 MG TABLET 20 MG PO (09:08)
[2021-07-04] MEDS: MONTELUKAST 10 MG TABLET PO (09:09)
[2021-07-04] MEDS: buPROPion XL 150 MG TAB PO (09:09)
[2021-07-04] MEDS: TRIAMTERENE/HCTZ 37.5/25 CAPSULE 1 CAP PO (09:09)
[2021-07-04 09:37] LABS: COVID19 - ADMIT (NP swab/PCR) Negative (Negative)
[2021-07-04] MEDS: BUDESONIDE 0.5 MG/2 ML NEB INH ×2 (10:11→19:26)
[2021-07-04] MEDS: BENZOCAINE/MENTHOL 1 LOZ PKT 1 EACH PO (13:28)
[2021-07-04] MEDS: ACETAMINOPHEN 325 MG TABLET 650 MG PO (14:51)
--- NOTE | 2021-07-04 15:17 | PC.NURSE ---
Pt continues w/course cough w/ excertion. Lungs clear/diminished, SpO2 95% 1LO2 Covid test ordered & sent...returned negative, Tele discontinued per orders. Call light w/in reach, pt independent in room Continue w/plan of care.
--- NOTE | 2021-07-04 16:08 | PM.PN.1 ---
Subjective Subjective Date Patient Seen: 07/04/21 Time Patient Seen: 08:00 Interval history: She was able to walk around the room. She says she feels worse today and more short of breath, but she does appear to be breathing more easily to me. Exam Vital Signs (past 8 hours): - 07/04/21 08:15 07/04/21 10:12 07/04/21 12:00 Temperature 98.0 F 97.9 F Pulse Rate 88 102 H Respiratory Rate 18 19 Blood Pressure 118/74 126/83 Pulse Oximetry 95 96 95 07/04/21 13:12 07/04/21 14:52 Temperature Pulse Rate 113 H Respiratory Rate 24 Blood Pressure Pulse Oximetry 95 95 Oxygen Delivery Method Room Air Oxygen Flow Rate 0 Narrative Exam Narrative: Gen: no acute distress Neck: trachea midline, no jvd Resp: lungs less wheezy and rhonchorous today, air movement improving CV: tachycardia Abd: soft, non-tender, normal bowel sounds Objective Labs Result Diagrams: 07/04/21 05:40 07/04/21 05:40 Labs: Laboratory Results - last 24 hr 07/04/21 07/04/21 07/04/21 05:40 05:40 08:30 WBC 13.7 H RBC 4.86 Hgb 14.0 Hct 41.1 MCV 84.7 MCH 28.9 MCHC 34.1 RDW 13.5 Plt Count 347 Sodium 136 L Potassium 3.5 Chloride 107 Carbon Dioxide 22 BUN 28 H Creatinine 0.99 Estimated GFR 57.0 L BUN/Creatinine Ratio 28.3 H Glucose 150 H Calcium 9.3 SARS-CoV-2 (PCR) Negative [facility] Medical History Chronic depression Essential hypertension Hypothyroidism Family History Mother Alive and well Father Cancer Social History household members: family Smoking Status: Former smoker alcohol intake: current Assessment & Plan Assessment & Plan narrative: Annabella Chavis is admitted for managment and treatment of an asthma exacerbation 1. Acute hypoxemic respiratory failure from asthma exacerbation and possible pneumonia -she continues on nebulizers, steroids, pulmicort, montelukast -she did receive magnesium on admission -she has been prescribed fosendra, has not started injections -respiratory panel negative -sputum culture sent -will need outpatient pulm -cxray showed infiltrates of unclear etiology, if does not improve may need bronch -continue IV antibiotics -COVID negative 3. Essential hypertension, chronic -continue anti-hypertensives 4. Hypothyroidism, chronic -continue synthroid 5. Depression, chronic -continue bupropion Time Spent With Patient Critical Care time: I spent a total of [] minutes of critical care time on this patient's care today; this time is exclusive of procedural time. Quality VTE Deep Vein Thrombosis/Pulmonary Embolism Present on Admission: No
[2021-07-04] MEDS: FUROSEMIDE 20 MG/2 ML VIAL IV (17:36)
[2021-07-04] MEDS: FAMOTIDINE 20 MG TABLET PO ×2 (18:00→18:28)
[2021-07-04] MEDS: cefTRIAXone 1,000 MG in SODIUM CHLORIDE 0.9% 100 ML IV (21:10)
[2021-07-04] MEDS: AZITHROMYCIN 250 MG TABLET 500 MG PO (21:11)
[2021-07-05] VITALS (11 sets, daily range): BP systolic 125–143; BP diastolic 62–88; PULSE 83–112; RESP 12–24; TEMP 36.2–37.6; O2SAT 88–95
[2021-07-05] MEDS: methylPREDNISolone 125 MG/2 ML VIAL 60 MG IV ×2 (00:19→09:11)
[2021-07-05] MEDS: ALBUTEROL/IPRATROPIUM 3 ML AMPUL INH ×4 (03:40→19:46)
[2021-07-05 06:26] LABS: Hematocrit 39.8 % (36-46); Hemoglobin 13.6 g/dL (12.0-16.0); Mean Corpuscular HGB Conc 34.1 % (30-36); Mean Corpuscular Hemoglobin 29.1 PG (26-34); Mean Corpuscular Volume 85.4 fL (80-100); Platelet Count 325 X10^3/uL (150-400); Red Blood Cell Count 4.66 X10^6/uL (4.0-5.2); Red Cell Distribution Width 13.3 % (11.6-14.8)
[2021-07-05] MEDS: LEVOTHYROXINE 150 MCG TABLET PO (06:31)
[2021-07-05 06:32] LABS: BUN Creatinine Ratio 20.9 (6-22); Blood Urea Nitrogen 23 mg/dL (7-17); Calcium 9.1 mg/dL (8.4-10.2); Carbon Dioxide 28 mmol/L (22-32); Chloride 106 mmol/L (98-107); Estimated Glomerular Filt Rate 50.5 mL/min (>60); Glucose 151 mg/dL (80-110); HEMOLYSIS < 15 (0-50); Potassium 3.4 mmol/L (3.4-5.1); Sodium 138 mmol/L (137-145)
[2021-07-05] MEDS: guaiFENesin ER 600 MG TAB PO (06:35)
[2021-07-05] MEDS: ENOXAPARIN 40 MG/0.4 ML SYRINGE SUBCUT (09:11)
[2021-07-05] MEDS: MONTELUKAST 10 MG TABLET PO (09:11)
[2021-07-05] MEDS: buPROPion XL 150 MG TAB PO (09:11)
[2021-07-05] MEDS: CITALOPRAM 10 MG TABLET 20 MG PO (09:11)
[2021-07-05] MEDS: SODIUM CHLORIDE 0.9% FLUSH 10 ML IV (09:21)
--- NOTE | 2021-07-05 09:28 | PC.NURSE ---
Patient short of breath at rest and with talking, has dry hacking cough, sats on RA 92%, LS clear but diminished.
[2021-07-05] MEDS: BUDESONIDE 0.5 MG/2 ML NEB INH ×2 (09:57→19:46)
--- NOTE | 2021-07-05 15:41 | P.PN_ITS ---
Subjective Subjective Date Patient Seen: 07/05/21 Interval history: PATIENT DENIES ANY SIGNIFICANT COMPLAINTS HOWEVER SHE DID REPEAT THAT DURING MODERATE EXERTION THAT SHE DOES GET DYSPNEIC NO FEVER OR CHILLS SOME COUGH NOTED BY RT NO OTHER COMPLAINTS OR SIGNIFICANT ISSUES OVERNIGHT Exam Vital Signs (past 8 hours): - 07/05/21 07:50 07/05/21 09:57 07/05/21 12:20 Temperature 99.0 F 98.4 F Pulse Rate 97 H 92 H 101 H Respiratory Rate 20 16 16 Blood Pressure 143/88 H 139/87 Pulse Oximetry 91 95 93 07/05/21 14:55 07/05/21 15:05 Temperature Pulse Rate 112 H Respiratory Rate 24 Blood Pressure Pulse Oximetry 94 94 Oxygen Delivery Method Room Air Oxygen Flow Rate 0 Narrative Exam Narrative: NO ACUTE DISTRESS. ABLE TO FINISH A FULL SENTENCE WITHOUT HAVING TO STOP BECAUSE OF SHORTNESS OF BREATH VITAL SIGNS STABLE HEAD ATRAUMATIC NORMOCEPHALIC NECK : SUPPLE WITHOUT ADENOPATHY NO CAROTID BRUITS EYE: EOMI, PERRLA, NORMAL CONJUNCTIVA; NO JAUNDICE CHEST: REGULAR RATE. NO RUBS. PMI IS NON DISPLACED. NO MURMURS; NORMAL S1- S2 PULMONARY: DECREASED BS OVER THE BASES. MILD BIBASILAR CRACKLES NOTED; NO INCREASED DULLNESS TO PERCUSSION ABDOMEN: SOFT. NONTENDER. NONDISTENDED. BOWEL SOUNDS ARE PRESENT IN ALL 4 QUADRANTS. NO MASS. EXTREMITIES: NO EDEMA.. NO CYANOSIS CLUBBING NOTED. NEURO: CRANIAL NERVES 2-12 GROSSLY INTACT. NO FOCAL NEUROLOGICAL DEFICIT NOTED. MSK: NORMAL RANGE OF MOTION FOR AGE. NO JOINT EFFUSION. SKIN: NORMAL FOR ETHNICITY; NO ECCHYMOSIS. NO LESION. GOOD TURGOR.; NO RASHES : NORMAL EXTERNAL GENITALIA. PSYCH : APPROPRIATE MOOD AND AFFECT. ALERT AWAKE ORIENTED X3 Objective Labs Result Diagrams: 07/05/21 06:10 07/05/21 06:10 Labs: Laboratory Results - last 24 hr 07/05/21 07/05/21 06:10 06:10 WBC 8.0 RBC 4.66 Hgb 13.6 Hct 39.8 MCV 85.4 MCH 29.1 MCHC 34.1 RDW 13.3 Plt Count 325 Sodium 138 Potassium 3.4 Chloride 106 Carbon Dioxide 28 BUN 23 H Creatinine 1.10 H Estimated GFR 50.5 L BUN/Creatinine Ratio 20.9 Glucose 151 H Calcium 9.1 PFSH Medical History Chronic depression Essential hypertension Hypothyroidism Family History Mother Alive and well Father Cancer Social History household members: family Smoking Status: Former smoker alcohol intake: current Assessment & Plan Assessment & Plan narrative: PROBLEM LIST ACUTE HYPOXIC RESPIRATORY FAILURE ON CHRONIC RESPIRATORY FAILURE ACUTE ASTHMA EXACERBATION POSSIBLE COMMUNITY-ACQUIRED PNEUMONIA. COULD BE GRAM-NEGATIVE PNEUMONIA HYPERTENSION PER HISTORY PLAN WITH SWITCH IV ROCEPHIN TO OMNICEF TODAY WILL ALSO DISCONTINUE AZITHROMYCIN SWITCHED TO DOXYCYCLINE ORALLY WILL ALSO TAPER SOLUMEDROL SWITCH TO PREDNISONE PRIOR TO DISCHARGE CONTINUE WITH BREATHING TREATMENT WHICH SHOULD BE CHANGED TO EVERY 6 HOURS WHILE AWAKE WILL ORDER AMBULATORY PULSE OX FOR HOME OXYGEN DETERMINATION HOWEVER PATIENT WAS ON ROOM AIR DURING MY INTERVIEW AND SATURATION REMAINED ABOVE 90% AT ALL TIMES CONSIDER REPEATING CHEST X-RAY IN THE MORNING IF INDICATED ADDITIONAL MANAGEMENT PER CLINICAL COURSE LIKELY DISCHARGE IN THE MORNING Time Spent With Patient Critical Care time: I spent a total of [] minutes of critical care time on this patient's care today; this time is exclusive of procedural time. Quality VTE Deep Vein Thrombosis/Pulmonary Embolism Present on Admission: No
[2021-07-05] MEDS: SUCRALFATE 1 GM TABLET PO ×2 (16:48→20:54)
[2021-07-05] MEDS: CEFDINIR 300 MG CAPSULE PO (20:54)
[2021-07-05] MEDS: FAMOTIDINE 20 MG TABLET PO (20:54)
[2021-07-05] MEDS: DOXYCYCLINE HYCLATE 100 MG TABLET PO (20:54)
--- NOTE | 2021-07-05 22:14 | PC.NURSE ---
Patient is alert and oriented. Has tight sounding cough which she states occasionally produces small amount green sputum. Expiratory wheezes auscultated throughout posteriorly. RA sat 93%. HRR. Denied nausea. BT present and patient reports she has been having loose stools likely related to antibiotic use. Is up independently in the room. Denied pain. Declines use of SCD's so reminded to ankle wave. Fall risk score is moderate but patient steady on feet and denies dizziness or lightheadedness; did remind to call for assistance if any occurs when getting out of bed.
[2021-07-05] MEDS: ALBUTEROL 2.5 MG/3 ML NEB (ADULT) INH (22:33)
[2021-07-06 02:17] VITALS: BP 141/76; PULSE 92; RESP 22; TEMP 36.7; O2SAT 93
[2021-07-06] MEDS: LEVOTHYROXINE 150 MCG TABLET PO (05:40)
[2021-07-06] MEDS: DOXYCYCLINE HYCLATE 100 MG TABLET PO (08:43)
[2021-07-06] MEDS: FAMOTIDINE 20 MG TABLET PO (08:43)
[2021-07-06] MEDS: CEFDINIR 300 MG CAPSULE PO (08:43)
[2021-07-06] MEDS: buPROPion XL 150 MG TAB PO (08:44)
[2021-07-06] MEDS: CITALOPRAM 10 MG TABLET 20 MG PO (08:44)
[2021-07-06] MEDS: SUCRALFATE 1 GM TABLET PO (08:44)
[2021-07-06] MEDS: predniSONE 20 MG TABLET 40 MG PO (08:44)
[2021-07-06] MEDS: ENOXAPARIN 40 MG/0.4 ML SYRINGE SUBCUT (08:44)
[2021-07-06] MEDS: MONTELUKAST 10 MG TABLET PO (08:44)
[2021-07-06] MEDS: ALBUTEROL/IPRATROPIUM 3 ML AMPUL INH (09:36)
[2021-07-06] MEDS: BUDESONIDE 0.5 MG/2 ML NEB INH (09:36)
[2021-07-06 09:37] VITALS: O2SAT 93
--- NOTE | 2021-07-06 12:05 | P.DS_ITS ---
History of Present Illness History of Present Illness Date Patient Seen: 07/06/21 Chief complaint: Asthma exacerbation, atypical pneumonia Narrative: Annabella Chavis is 60-year-old woman with eosinophilic phenotype severe asthma who underwent 3 steroid tapers of the last number of months most recently discontinued about 6 days ago with worsening asthma symptoms over the last 24-48 hours.? She was recently seen by an tableau analyst at the [facility] in [place] and and prescribed injectable Fasenra.? She received in in the mail and needed to have a provider administer her the first dose and has an appointment on July 06 for thisl She is currently using on high-dose Advair Diskus b.i.d 9500/50), monteleukast, albuterol inhaler and nebulizer and continues to short of breath.? She comes in today significantly short of breath, only able to speak in 1-2 word sentences oxygen saturations still maintained in the a 98% range but poor air movement and moderate tachycardia.? She describes no fevers chills, vomiting, diarrhea, abdominal pain, headaches, lower extremity edema, chest pain or palpitations. She does endorse a mildly productive cough with phlegm ranging from clear to greenish in color. In the ED, due to her hypoxia and an elevated D-dimer, she underwent CT angio of the chest and ruled out for a PE concluding: No pulmonary embolism.? Scattered small bilateral centrilobular pulmonary nodules and ground-glass opacities, likely infectious/inflammatory.? Follow-up to resolution recommended. She was adminstered a one-time dose of IV solumedrol 125 mg and multiple nebulizers. She was also administered first doses of IV ceftriaxone and azithromycin.? Her temp is 97.8?, blood pressure 120/78, heart rate 101, respiratory rate 26, oxygen sa turation 96% (I observed closer to 90-91% on room air while in the room), she weighs 90.7 kg with a BMI of 35.4.? She does have a mildly elevated white count at 12.5, she has a mild left shift of 7700, D-dimer was 524, however she is just under the age adjusted normal, she does have a creatinine bump of 1.42 with a EGFR of 37.6, procalcitonin was ordered and is pending and COVID-19 PCR is negative. Discharge Providers Provider Date of admission: 07/02/21 00:08 Discharge Date: 07/06/21 Consults: 07/02/21 00:35 Consult to Respiratory Therapy Evaluate & Treat Comment: Physician Instructions: Evaluate and treat Discharge provider: Angelica Tubbs DO Summary Hospital Course Discharge Diagnosis: ?ACUTE HYPOXIC RESPIRATORY FAILURE ON CHRONIC RESPIRATORY FAILURE ACUTE ASTHMA EXACERBATION. eosinophilic asthma reported POSSIBLE COMMUNITY-ACQUIRED PNEUMONIA.? COULD BE GRAM-NEGATIVE PNEUMONIA HYPERTENSION PER HISTORY Hospital Course: this is a 15-year-old female admitted to the hospital for an acute exacerbation of chronic asthma. Patient has been improving last 48 hours. She has been on room air. She is able to finish a full sentence without having to stop because of shortness of breath. Chest x-ray and other labs has been fairly stable as well. She will be discharged on antibiotics with a taper steroid Course. Albuterol inhaler will be ordered as needed. Will also add Symbicort b.i.d. due to history of recurrent asthma. Patient will also be started on DuoNeb treatment as needed. patient also is scheduled to started on treatment for her eosinophilic asthma per outpatient provider. At this time patient appeared to be is clinically improved and will be discharged to home. 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 ? ABLE TO FINISH A FULL SENTENCE WITHOUT HAVING TO STOP BECAUSE OF SHORTNESS OF BREATH VITAL SIGNS STABLE HEAD ATRAUMATIC NORMOCEPHALIC NECK : SUPPLE WITHOUT ADENOPATHY NO CAROTID BRUITS EYE:? EOMI, PERRLA, NORMAL CONJUNCTIVA; NO JAUNDICE CHEST:? REGULAR RATE.? ? NO RUBS.? PMI IS NON DISPLACED.? NO MURMURS; NORMAL S1- S2 PULMONARY:? DECREASED BS OVER THE BASES.? MILD BIBASILAR CRACKLES NOTED; NO INCREASED DULLNESS TO PERCUSSION ABDOMEN:? SOFT.? NONTENDER.? NONDISTENDED.? BOWEL SOUNDS ARE PRESENT IN ALL 4 QUADRANTS.? NO MASS. EXTREMITIES: NO EDEMA..? NO CYANOSIS CLUBBING NOTED. NEURO:? CRANIAL NERVES 2-12 GROSSLY INTACT. NO FOCAL NEUROLOGICAL DEFICIT NOTED. MSK:? NORMAL RANGE OF MOTION FOR AGE.? NO JOINT EFFUSION. SKIN:? NORMAL FOR ETHNICITY; NO ECCHYMOSIS.? NO LESION. ? GOOD? TURGOR.; NO RASHES :? NORMAL EXTERNAL GENITALIA. PSYCH :? APPROPRIATE MOOD AND AFFECT.? ALERT AWAKE ORIENTED X3 Objective Labs Result Diagrams: 07/05/21 06:10 07/05/21 06:10 [facility] Medical History Chronic depression Essential hypertension Hypothyroidism Family History Mother Alive and well Father Cancer Social History household members: family Smoking Status: Former smoker alcohol intake: current Discharge Plan Discharge Plan Patient Disposition: Home Discharge orders & Medications Prescriptions: New cefdinir 300 mg capsule 300 mg PO BID Qty: 14 0RF doxycycline hyclate 100 mg tablet 100 mg PO BID Qty: 14 0RF Acidophilus Tablet,Chewable 1 tab PO DAILY Qty: 30 0RF prednisone 10 mg tablet 10 mg PO DIRECTED Qty: 40 0RF Rx Instructions: 40mg po dialy x 3 days 30mg po daily x 3 days 20mg po daily x 3 days 10mg po daiy x 3 days 5mg po daiy x 3 days stop albuterol sulfate 90 mcg/actuation aerosol powdr breath activated 2 inh inhalation Q4-6H PRN (Reason: shortness of breath or wheezing) Qty: 1 0RF budesonide-formoterol 80-4.5 mcg/actuation HFA aerosol inhaler 1 inh inhalation BID Qty: 10.2 0RF ipratropium-albuterol 0.5 mg-3 mg(2.5 mg base)/3 mL solution for nebulization 3 ml inhalation Q6-8H PRN (Reason: shortness of breath or wheezing) Qty: 60 0RF famotidine [Pepcid] 40 mg tablet 40 mg PO BID Qty: 60 0RF Continued levothyroxine 150 MCG tablet 150 mcg PO QAM Qty: 0 0RF bupropion HCl [Wellbutrin XL] 150 MG tablet extended release 24 hr 150 mg PO QDAY Qty: 0 0RF Rx Instructions: take 2 tablets by mouth every morning and 1 tablet every afternoon citalopram 20 mg tablet 20 mg PO DAILY 0RF montelukast 10 mg tablet 10 mg PO DAILY 0RF Discontinued triamterene-hydrochlorothiazid 37.5 MG/25 MG tablet 1 tab PO QDAY Qty: 0 0RF Flovent HFA 12 GM HFA aerosol inhaler 1 puff INH BID Qty: 0 0RF Diet/Activity/Treatments Diet: Low-fat, Low-sodium and Low-cholesterol Activity: as tolerated Skin/Wound/Dressing Care Report to your healthcare provider any signs of infection, such as:: chills, fever, night sweats and increased pain Visit Report/Discharge Packet Instructions: DI for Asthma -- Adult Quality VTE Deep Vein Thrombosis/Pulmonary Embolism Present on Admission: No
--- NOTE | 2021-07-06 13:00 | PC.NURSE ---
Patient ready for discharge to home with her family. Discharge paperwork, handouts and medications reviewed with patient, she states understanding and has no further questions or concerns at this time. patient states she would prefer to call her PCP to arrange follow up and request referral to marketing co op. No IV in. Home medications returned from pharmacy, and patient escorted out via wheelchair by EDD.
--- NOTE | 2021-07-06 15:58 | CM.DPC ---
DCP Discharge Home Per MD, pt is medically stable to d/c home today and no identified barriers to discharge. Per RN, pt has been independent in room and d/c instructions provided and no concerns at this time and family ready to provide transport home. Per RT, pt has been tolerating room air and no home oxygen needs at this time. Plan: Patient discharged home today via family POV and has f/u with PCP after d/c and no SW needs at this time. SONALI Patricio
--- NOTE | 2021-07-11 22:18 | PC.NURSE ---
Late Entry Azithromycin 500mg completed infusion at 0050.
== END 2021-07-06 13:03 | disposition home or self-care (01) | DRG 189 ==
LOC: ED 23:01 → AC 07-02 00:08
PROVIDERS: Emergency Medicine; Internal Medicine; Admitting Provider Nurse Practitioner Family; Emergency Provider Emergency Medicine; Referring Provider Emergency Medicine; Visit Provider Nurse Practitioner Family
DX: J96.21 Acute and chronic respiratory failure with hypoxia (principal); J15.6 Pneumonia due to other Gram-negative bacteria; J45.901 Unspecified asthma with (acute) exacerbation; I10 Essential (primary) hypertension; E03.9 Hypothyroidism, unspecified; F32.A Depression, unspecified; Z20.822 Contact with and (suspected) exposure to COVID-19
CPT/HCPCS: 36415; 36600; 71045; 71275; 80048; 80053; 80076; 82805; 83735; 84145; 84484; 85025; 85027; 85379; 87070; 87205; 87633; 87635; 94150; 94618; 94640; 94762; 96361; 96365; 96367; 96375; 99284; 99285; C9803; A9270; J0696; J1100; J1650; J1940; J2270; J2930; J3475; J7613; Q9967

== ENCOUNTER → 2022-04-29 11:23 | Outpatient (CLI) | payer OTHER, SELFPAY ==
[2021-07-02 02:57] VITALS: BMI 35.5
--- NOTE | 2022-04-29 | DI.MG.S_ITS ---
BILATERAL DIGITAL SCREENING MAMMOGRAM 3D/2D WITH CAD: 04/29/2022 CLINICAL: Routine screening. Comparison is made to exams dated: 02/27/2020 mammogram and 03/20/2018 mammogram - [facility]. There are scattered areas of fibroglandular density in both breasts (category b / 25%-50% glandular tissue). Current study was also evaluated with a Computer Aided Detection (CAD) system. No significant masses, calcifications, or other findings are seen in either breast. There has been no significant interval change. IMPRESSION: NEGATIVE There is no mammographic evidence of malignancy. A 1 year screening mammogram is recommended. Based on the Tyrer Cuzick model (a risk assessment model) the patient's lifetime risk is 5.2% and her 10 year risk is 2.2%. According to the ACR, ACS, and NCCN guidelines, an annual breast MRI exam along with mammogram is recommended if the patient's lifetime risk is 20% or greater. This exam was interpreted at Station ID: [id number]. NOTE: For mammograms, a report in lay terms will be sent to the patient. Approximately 15% of breast malignancies will not be visualized mammographically. In the management of a palpable breast mass, a negative mammogram must not discourage biopsy of a clinically suspicious lesion. Electronically Signed By: Saul cai/[email or web address]:04/29/2022 16:28:43 letter sent: Normal Exam ACR BI-RADS Category 1: Negative [id number]
== END ==
PROVIDERS: PCP Family Medicine; Referring Provider Family Medicine; Visit Provider Family Medicine
DX: Z12.31 Encounter for screening mammogram for malignant neoplasm of breast (principal)
CPT/HCPCS: 77063; 77067